=== PATIENT | female | born 1950 | race Caucasian/White ===

== ENCOUNTER 2019-05-26 21:18 | Emergency (ER) | payer OTHER ==
[~2019-05-26] VITALS: Ht 160 cm; Wt 50.4 kg
[~2019-05-26 21:18] MED LIST: BONIVA; CETI10; CETI10 PO; CHANTIX; CLOP75 PO; COLE1 PO; FAMO10; HYDHCL10 PO; HYDPAM25 PO; HYDROCODONE/APAP; IBUP800 PO; METH5; OMEP20ER PO; PRED5; PROACE100 PO; RANI150; TIZA4; TIZA4 PO; [UNRECOGNIZED DRUG - REMARK]; [UNRECOGNIZED DRUG - REMARK]
[2019-05-26 22:10] LABS: BASOPHILS ABSOLUTE AUTO 0.04 K/mm3 (0.00-0.23); BASOPHILS PERCENT AUTO 1 % (0-2); EOSINOPHILS ABSOLUTE AUTO 0.02 K/mm3 (0.00-0.68); EOSINOPHILS PERCENT AUTO 0 % (0-6); Hematocrit 41.9 % (33.0-51.0); Hemoglobin 13.9 g/dL (11.5-16.0); IMMATURE GRAN ABSOLUTE AUTO 0.01 K/mm3 (0.00-0.10); IMMATURE GRAN PERCENT AUTO 0 % (0-1); LYMPHOCYTES ABSOLUTE AUTO 2.99 K/mm3 (0.84-5.20); LYMPHOCYTES PERCENT AUTO 38 % (21-46); MONOCYTES ABSOLUTE AUTO 0.53 K/mm3 (0.16-1.47); MONOCYTES PERCENT AUTO 7 % (4-13); Mean Corpuscular HGB 32.2 pg (26.0-34.0); Mean Corpuscular HGB Conc 33.2 g/dL (31.5-36.5); Mean Corpuscular Volume 97 fL (80-100); Mean Platelet Volume 9.1 fL (9.1-12.4); NEUTROPHILS ABSOLUTE AUTO 4.21 K/mm3 (1.96-9.15); NEUTROPHILS PERCENT AUTO 54 % (41-73); Platelet Count 262 K/mm3 (150-400); RDW Coefficient Variation 12.9 % (11.7-14.2); RDW Standard Deviation 45.9 fL (35.1-46.3); Red Blood Cell Count 4.32 M/mm3 (3.80-5.20)
[2019-05-26 22:32] LABS: Alanine Aminotransfer (ALT/SGP 18 U/L (12-78); Albumin, Blood 3.1 g/dL (3.4-5.0); Albumin/Globulin Ratio 0.9 (0.8-1.8); Alk Phos 64 U/L (50-136); Anion Gap 9 mmol/L (6-16); Aspartate Aminotrans (AST/SGOT 20 U/L (12-37); Bilirubin, Total 0.2 mg/dL (0.1-1.0); Blood Urea Nitrogen 5 mg/dL (8-24); Bun/Creatinine Ratio 7.9 (12.0-20.0); CO2, Blood 27 mmol/L (21-32); Calcium, Blood 8.7 mg/dL (8.5-10.1); Chloride, Blood 103 mmol/L (98-108); Creatinine, Blood 0.63 mg/dL (0.40-1.00); Globulin, Blood 3.6 g/dL (2.2-4.0); Glomerular Filtration Rate >60 (60-); Glucose, Blood 125 mg/dL (70-99); Potassium, Blood 2.7 mmol/L (3.5-5.5); Sodium, Blood 139 mmol/L (136-145); Total Protein, Blood 6.7 g/dL (6.4-8.2)
[2019-05-26] MEDS ORDERED: CLOB.05TO (22:48)
[2019-05-26] MEDS ORDERED: CLOP75 PO (22:48)
[2019-05-26] MEDS ORDERED: Hydrochloroth12.5 MG PO (22:49)
[2019-05-26] MEDS ORDERED: ACET325 PO (22:49)
[2019-05-26] MEDS ORDERED: CALCIUM 600 +1 EA11 PO (22:50)
[2019-05-26] MEDS ORDERED: DOXY100 PO (22:50)
[2019-05-26 23:05] LABS: Source, Urine Clean Catch
[2019-05-26 23:08] LABS: Bilirubin, Urine Neg (Neg); Blood, Urine 1+ (Neg); Glucose Qualitative, Urine Neg (Neg); Ketones, Urine 1+ (Neg); Leukocyte Esterase, Urine 3+ (Neg); Nitrite, Urine Neg (Neg); Protein, Urine 2+ (Neg); Urobilinogen, Urine 1+ (Normal)
[2019-05-26 23:15] LABS: Color, Urine Yellow (P-Yellow)
[2019-05-26 23:16] LABS: Appearance, Urine Hazy (Clear)
[2019-05-26 23:18] LABS: Bacteria Many /hpf; Red Blood Cells, Urine 0-2 /hpf (0-2); Squamous Epithelial Cells Many /hpf (Few); White Blood Cells, Urine 50-100 /hpf (0-5)
[2019-05-27] MEDS ORDERED: LEVE500 PO (00:08)
[2019-05-27] MEDS ORDERED: CEPH500 PO (00:08)
== END 2019-05-27 00:55 | disposition home or self-care (01) ==
LOC: ER 21:18
PROVIDERS: Physician Assistant
DX: N39.0 Urinary tract infection, site not specified (principal); R42 Dizziness and giddiness; I10 Essential (primary) hypertension; Z91.040 Latex allergy status; Z88.2 Allergy status to sulfonamides; Z91.02 Food additives allergy status; Z91.018 Allergy to other foods; Z91.048 Other nonmedicinal substance allergy status; Z79.899 Other long term (current) drug therapy; Z79.01 Long term (current) use of anticoagulants; Z86.73 Personal history of transient ischemic attack (TIA), and cerebral infarction without residual deficits
CPT/HCPCS: 36415; 70450; 80053; 81001; 85025; 87086; 93005; 93010; 96365; 96367; 99284-25; J0696; J1953

== ENCOUNTER → 2021-01-04 | Outpatient (CLI) | payer OTHER ==
[~2021-01-04] MED LIST changes: +ACET325 PO; +CALCIUM 600 +1 EA11 PO; +CEPH500 PO; +CLOB.05TO; +DOXY100 PO; +Hydrochloroth12.5 MG PO; +LEVE500 PO
== END | disposition home or self-care (01) ==
LOC: LAB SHORT 07:41
DX: L98.8 Other specified disorders of the skin and subcutaneous tissue (principal)
CPT/HCPCS: 88305; 88312

== ENCOUNTER 2023-12-15 11:45 | Emergency (ER) | payer MEDICARE ==
[~2023-12-15] VITALS: Ht 149.9 cm; Wt 39.9 kg
[2023-12-15] MEDS ORDERED: Droperidol 5 mg/2 ml Vial IV ONE ×2 (13:20→14:05)
[2023-12-15] MEDS ORDERED: Amoxicillin500 MG PO (13:37)
[2023-12-15] MEDS ORDERED: IBUP100S PO (13:38)
[2023-12-15] MEDS ORDERED: Klor-Con M1515 MEQ PO (13:38)
[2023-12-15] MEDS ORDERED: KLONOPIN0.5 M9 PO (13:39)
[2023-12-15 13:45] LABS: pH Blood Venous 7.43 (7.34-7.37)
[2023-12-15 13:46] LABS: Base Excess Venous 10.3 mmol/L; PCO2 Venous 53 mmHg (38-42)
[2023-12-15 14:01] LABS: BASOPHILS ABSOLUTE AUTO 0.02 K/mm3 (0.00-0.23); BASOPHILS PERCENT AUTO 0 % (0-2); EOSINOPHILS ABSOLUTE AUTO 0.06 K/mm3 (0.00-0.68); EOSINOPHILS PERCENT AUTO 1 % (0-6); Hemoglobin 15.4 g/dL (11.5-16.0); IMMATURE GRAN ABSOLUTE AUTO 0.01 K/mm3 (0.00-0.10); IMMATURE GRAN PERCENT AUTO 0 % (0-1); LYMPHOCYTES PERCENT AUTO 32 % (21-46); MONOCYTES ABSOLUTE AUTO 0.54 K/mm3 (0.16-1.47); MONOCYTES PERCENT AUTO 8 % (4-13); Mean Corpuscular HGB 30.3 pg (26.0-34.0); Mean Corpuscular HGB Conc 33.5 g/dL (31.5-36.5); Mean Corpuscular Volume 91 fL (80-100); Mean Platelet Volume 9.9 fL (9.1-12.4); NEUTROPHILS ABSOLUTE AUTO 4.06 K/mm3 (1.96-9.15); NEUTROPHILS PERCENT AUTO 59 % (41-73); Platelet Count 217 K/mm3 (150-400); RDW Coefficient Variation 13.4 % (11.7-14.2); RDW Standard Deviation 45.1 fL (35.1-46.3); Red Blood Cell Count 5.08 M/mm3 (3.80-5.20); White Blood Cell Count 6.89 K/mm3 (4.00-11.30)
[2023-12-15 14:24] LABS: Albumin, Blood 3.4 g/dL (3.4-5.0); Albumin/Globulin Ratio 0.9 (0.8-1.8); Bilirubin, Total 0.7 mg/dL (0.1-1.0); Bun/Creatinine Ratio 6.6 (12.0-20.0); Calcium, Blood 9.3 mg/dL (8.5-10.1); Creatinine, Blood 0.91 mg/dL (0.40-1.00); Globulin, Blood 3.8 g/dL (2.2-4.0); Magnesium, Blood 1.7 mg/dL (1.6-2.4); Potassium, Blood 3.3 mmol/L (3.5-5.5); Total Protein, Blood 7.2 g/dL (6.4-8.2)
[2023-12-15] MEDS ORDERED: Potassium Chloride 20 MEQ TabCR PO ONE (14:50)
[2023-12-15] MEDS ORDERED: Seroquel Xr50 MG PO (15:12)
[2023-12-15 16:31] LABS: Source, Urine Straight Cath
[2023-12-15 16:34] LABS: Bilirubin, Urine Neg (Neg); Blood, Urine Neg (Neg); Color, Urine Yellow (P-Yellow); Glucose Qualitative, Urine Neg (Neg); Ketones, Urine Neg (Neg); Leukocyte Esterase, Urine 1+ (Neg); Nitrite, Urine Neg (Neg); Protein, Urine Neg (Neg); Urobilinogen, Urine NORM (Normal); pH, Urine 6.5 (5.0-8.0)
[2023-12-15 16:52] LABS: Appearance, Urine Hazy (Clear)
[2023-12-15 17:02] VITALS: BP 163/73
[2023-12-15 17:16] LABS: Bacteria Mod /hpf; Mucus Light (0-Heavy); Red Blood Cells, Urine 0-2 /hpf (0-2); Squamous Epithelial Cells Few /hpf (Few); Yeast/Fungi Urine Rare /hpf
== END 2023-12-15 17:19 | disposition home or self-care (01) ==
LOC: ER 11:45
PROVIDERS: Student in an Organized Health Care Education/Training Program
DX: A52.17 General paresis (principal); M79.7 Fibromyalgia; E87.6 Hypokalemia; I10 Essential (primary) hypertension; F17.200 Nicotine dependence, unspecified, uncomplicated; Z79.02 Long term (current) use of antithrombotics/antiplatelets; Z79.899 Other long term (current) drug therapy; Z91.040 Latex allergy status; Z88.2 Allergy status to sulfonamides; Z91.018 Allergy to other foods; Z91.048 Other nonmedicinal substance allergy status
CPT/HCPCS: 80053; 81001; 82140; 82803; 83735; 85025; 96374; 99285-25; A9270; J1790; P9612

== ENCOUNTER 2023-12-20 08:15 | Emergency (ER) | payer MEDICARE ==
[~2023-12-20] VITALS: Ht 152.4 cm; Wt 39.5 kg
[~2023-12-20 08:15] MED LIST changes: +Amoxicillin500 MG PO; +IBUP100S PO; +KLONOPIN0.5 M9 PO; +Klor-Con M1515 MEQ PO; +Seroquel Xr50 MG PO
[2023-12-20] MEDS ORDERED: DONEPEZIL HCL10 M1 PO (08:32)
[2023-12-20 09:45] VITALS: BP 166/91
== END 2023-12-20 10:40 | disposition home or self-care (01) ==
LOC: ER 08:15
DX: M25.551 Pain in right hip (principal); F17.200 Nicotine dependence, unspecified, uncomplicated; I10 Essential (primary) hypertension; W13.3XXA Fall through floor, initial encounter; Z86.73 Personal history of transient ischemic attack (TIA), and cerebral infarction without residual deficits; Z79.899 Other long term (current) drug therapy; Z91.040 Latex allergy status; Z88.2 Allergy status to sulfonamides; Z91.011 Allergy to milk products; Z91.018 Allergy to other foods; Z91.09 Other allergy status, other than to drugs and biological substances
CPT/HCPCS: 73502; 99283-25

== ENCOUNTER 2024-01-04 09:18 | Inpatient (IN) | payer MEDICARE ==
[2024-01-04] VITALS (9 sets, daily range): BP systolic 108–180; BP diastolic 78–99
[~2024-01-04] VITALS: Ht 149.9 cm; Wt 36.7 kg
[~2024-01-04 09:18] MED LIST changes: +DONEPEZIL HCL10 M1 PO
[2024-01-04 10:24] LABS: Source, Urine Straight Cath
[2024-01-04 10:28] LABS: Appearance, Urine Clear (Clear); Bilirubin, Urine Neg (Neg); Blood, Urine Neg (Neg); Color, Urine Yellow (P-Yellow); Glucose Qualitative, Urine Neg (Neg); Ketones, Urine Neg (Neg); Leukocyte Esterase, Urine Neg (Neg); Nitrite, Urine Neg (Neg); Protein, Urine Neg (Neg); Urobilinogen, Urine 1+ (Normal)
[2024-01-04 10:56] LABS: BASOPHILS ABSOLUTE AUTO 0.03 K/mm3 (0.00-0.23); BASOPHILS PERCENT AUTO 0 % (0-2); EOSINOPHILS ABSOLUTE AUTO 0.08 K/mm3 (0.00-0.68); EOSINOPHILS PERCENT AUTO 1 % (0-6); Hematocrit 48.2 % (33.0-51.0); Hemoglobin 15.9 g/dL (11.5-16.0); IMMATURE GRAN ABSOLUTE AUTO 0.02 K/mm3 (0.00-0.10); IMMATURE GRAN PERCENT AUTO 0 % (0-1); LYMPHOCYTES ABSOLUTE AUTO 2.29 K/mm3 (0.84-5.20); LYMPHOCYTES PERCENT AUTO 29 % (21-46); MONOCYTES ABSOLUTE AUTO 0.41 K/mm3 (0.16-1.47); MONOCYTES PERCENT AUTO 5 % (4-13); Mean Corpuscular HGB 29.9 pg (26.0-34.0); Mean Corpuscular Volume 91 fL (80-100); Mean Platelet Volume 9.8 fL (9.1-12.4); NEUTROPHILS ABSOLUTE AUTO 5.19 K/mm3 (1.96-9.15); NEUTROPHILS PERCENT AUTO 65 % (41-73); Platelet Count 240 K/mm3 (150-400); RDW Coefficient Variation 13.3 % (11.7-14.2); RDW Standard Deviation 45.1 fL (35.1-46.3); Red Blood Cell Count 5.31 M/mm3 (3.80-5.20); White Blood Cell Count 8.02 K/mm3 (4.00-11.30)
[2024-01-04 11:20] LABS: Albumin, Blood 3.1 g/dL (3.4-5.0); Albumin/Globulin Ratio 0.9 (0.8-1.8); Bilirubin, Total 0.8 mg/dL (0.1-1.0); Bun/Creatinine Ratio 12.8 (12.0-20.0); Calcium, Blood 8.8 mg/dL (8.5-10.1); Creatinine, Blood 0.63 mg/dL (0.40-1.00); Globulin, Blood 3.5 g/dL (2.2-4.0); Total Protein, Blood 6.6 g/dL (6.4-8.2)
[2024-01-04] MEDS ORDERED: TraMADol HCl 50 MG Tab PO PRN (11:50)
[2024-01-04] MEDS ORDERED: FentaNYL Citrate 50 MCG/ML 2 ML Injection IV PRN (11:55)
[2024-01-04] MEDS ORDERED: Acetaminophen 325 MG TABLET PO PRN (11:55)
[2024-01-04] MEDS ORDERED: ClonazePAM 0.5 MG Tab PO PRN (12:45)
[2024-01-04] MEDS ORDERED: Ketorolac Tromethamine 15mg Vial IV PRN (12:55)
[2024-01-04] MEDS ORDERED: CeFAZolin Sodium 2,000 MG in NS 100 ML IV SCH (15:15)
[2024-01-04] MEDS ORDERED: Lactated Ringer's 1,000 ML IV SCH (15:15)
[2024-01-04] MEDS ORDERED: Bupivacaine 0.5% Inj 10 ML Vial ONE (15:24)
[2024-01-04] MEDS ORDERED: FentaNYL Citrate 50 MCG/ML 2 ML Injection ONE (15:43)
[2024-01-04] MEDS ORDERED: propofoL 20 ML IV ONE (15:43)
[2024-01-04] MEDS ORDERED: Lidocaine HCl 2% 20 ML MDV ONE (15:44)
--- NOTE | 2024-01-04 15:48 | NUR ---
DAY SURGERY PT ARRIVING TO DAY SURGERY IN ER [facility]. PT IS AXO TO SELF ONLY WHICH IS UNCHANGED FROM ER PER [employer]. PT COMUNICATING W STAFF BUT DOES NOT FOLLOW COMMANDS . PT REPORTING PAIN IN HER R HIP AND HER LEFT LOWER LEG. PT HYPERTENSIVE W SBP IN THE 180'S. SPO2 >94% ON RM AIR. PT AFEBRILE. RESP ARE EVEN AND UNLABORED. DR. DARBY AT BEDSIDE. PT REPORTING PAIN BUT IS NOT IN DISTRESS. PT'S DAUGHTER CONTACTED BY DR. DARBY AND IS ON HER WAY TO DAY SURGERY.
[2024-01-04] MEDS ORDERED: Tranexamic Acid 100 ML IV SCH (16:20)
[2024-01-04] MEDS ORDERED: Phenylephrine HCl 100 MCG/ML-NS 10MLSYR (1MG/10ML) ONE (16:29)
[2024-01-04] MEDS ORDERED: Dexamethasone Sod Phos 10 MG/ML 1ML VIAL ONE (16:35)
[2024-01-04] MEDS ORDERED: EpiNEPhrine 1 MG/1 ML 1ML Vial ONE (16:42)
[2024-01-04] MEDS ORDERED: Ondansetron HCl 2 MG / ML 2ML Vial ONE (17:17)
--- NOTE | 2024-01-04 18:30 | NUR ---
ARRIVAL TO 213 PT ARRIVED TO HER ROOM FROM PACU, TRANSFERRED TO HER BED WITH 5 STAFF, VANESSA PROMINENCE NOTED ON SACRUM WHICH WAS PADDED, PUREWICK PLACED, PT NOT HOLDING STILL TO DO VITALS AT THIS TIME, ATTEMPTED TO ORIENT BUT NOT ABLE TO.
[2024-01-04] MEDS ORDERED: LORazepam 2 MG/ML 1ML Injection IV ONE ×2 (19:15)
[2024-01-04] MEDS ORDERED: QUEtiapine Fumarate 25 MG Tab PO SCH (21:00)
[2024-01-05] MEDS ORDERED: LORazepam 2 MG/ML 1ML Injection ONE (01:24)
[2024-01-05 04:13] VITALS: BP 137/91
[2024-01-05 07:41] VITALS: BP 127/62
[2024-01-05 07:50] LABS: BASOPHILS ABSOLUTE AUTO 0.01 K/mm3 (0.00-0.23); BASOPHILS PERCENT AUTO 0 % (0-2); EOSINOPHILS PERCENT AUTO 0 % (0-6); Hematocrit 43.3 % (33.0-51.0); Hemoglobin 14.5 g/dL (11.5-16.0); IMMATURE GRAN ABSOLUTE AUTO 0.02 K/mm3 (0.00-0.10); IMMATURE GRAN PERCENT AUTO 0 % (0-1); LYMPHOCYTES ABSOLUTE AUTO 1.13 K/mm3 (0.84-5.20); LYMPHOCYTES PERCENT AUTO 13 % (21-46); MONOCYTES ABSOLUTE AUTO 0.57 K/mm3 (0.16-1.47); MONOCYTES PERCENT AUTO 6 % (4-13); Mean Corpuscular HGB 30.1 pg (26.0-34.0); Mean Corpuscular HGB Conc 33.5 g/dL (31.5-36.5); Mean Corpuscular Volume 90 fL (80-100); Mean Platelet Volume 9.5 fL (9.1-12.4); NEUTROPHILS ABSOLUTE AUTO 7.24 K/mm3 (1.96-9.15); NEUTROPHILS PERCENT AUTO 81 % (41-73); Platelet Count 212 K/mm3 (150-400); RDW Standard Deviation 42.9 fL (35.1-46.3); Red Blood Cell Count 4.81 M/mm3 (3.80-5.20); White Blood Cell Count 8.97 K/mm3 (4.00-11.30)
[2024-01-05 08:08] LABS: Bun/Creatinine Ratio 13.1 (12.0-20.0); Calcium, Blood 8.6 mg/dL (8.5-10.1); Creatinine, Blood 0.69 mg/dL (0.40-1.00); Potassium, Blood 4.1 mmol/L (3.5-5.5)
[2024-01-05] MEDS ORDERED: Donepezil HCl 5 MG Tab PO SCH (09:00)
[2024-01-05] MEDS ORDERED: Potassium Chloride 10 Meq Tablet SA PO SCH (09:00)
[2024-01-05] MEDS ORDERED: Nicotine 14 MG PATCH TOP SCH (09:00)
[2024-01-05] MEDS ORDERED: Calcium/Vit D 600 mg-400 Unit Tab PO SCH (09:00)
[2024-01-05 14:31] VITALS: BP 165/80
--- NOTE | 2024-01-05 20:00 | NUR ---
PT HAS BEEN STABLE THIS SHIFT. CONFUSED AND COMBATIVE. ORIENTED X0. PT PULLS AT LINES AND DRESSINGS. SITTER PRESENT. PT AQUACEL CHANGED X2 PRN FOR PT PULLING. SMALL AMT SANG DRAINAGE PRESENT. PT NOT ABLE TO WORK WITH THERAPY SHE DOES NOT FOLLOW COMMANDS. PT MOVING IN BED CONSTANTLY. IV SL. POOR PO INTAKE. INCONTINENT IN ATTENDS. PREVENTATIVE MEPILEX TO COCCYX. PLAN FOR PLACEMENT IN [facility] AT DISCHARGE.
[2024-01-05 20:23] VITALS: BP 161/85
--- NOTE | 2024-01-06 04:37 | NUR ---
SHIFT SUMMARY PT IS POD2 FOR A R HIP NAILING. DRESSINGS REMAIN C/D/I. PT HAS SLEPT MOST OF SHIFT, AWAKE THE LAST COUPLE OF HOURS AND VERBALLY RESPONSIVE, BUT IS VERY CONFUSED AND DOES NOT RESPOND TO QUESTIONS APPROPRIATELY. PT HAS BEEN COOPERATIVE W/ CARE THIS SHIFT. INC VOIDS, ATTENDS IN PLACE. VSS. PT IS SALINE LOCKED. PT DID NOT COMPLAIN OF PAIN THIS SHIFT. CALL LIGHT IN REACH, BED ALARM ON, CLINICAL SITTER IN ROOM W/ PT.
[2024-01-06 04:54] VITALS: BP 151/80
[2024-01-06] MEDS ORDERED: Enoxaparin 40 MG/0.4 ML SYR SC SCH (09:00)
[2024-01-06 09:30] VITALS: BP 137/96
--- NOTE | 2024-01-06 14:57 | NUR ---
DR. MORRISON NOTIFIED THAT THIS RN WAS UNABLE TO LOCATE PT'S R PEDAL PULSE BY PALPATING OR BY DOPPLER. R AND L TIBIAL AND R PEDAL PULSE LOCATED BY DOPPLER BUT UNABLE TO PALPATE. PT ALSO HAS DISCOLORATION TO HER L 2ND TOE. PT IS ALSO AGGITATED AND CONTINUALLY TRYING TO GET OOB. 1:1 SITTER AT THE BEDSIDE FOR PT SAFETY. SPOKE WITH PT'S DAUGHTER REGARDING CONFUSION/AGGITATION/ANXIETY. CLONAZEPAM GIVEN EARLIER WITH NO EFFECT. ATIVAN ORDERED PER DR. MORRISON.
[2024-01-06] MEDS ORDERED: LORazepam 2 MG/ML 1ML Injection IV ONE (15:05)
--- NOTE | 2024-01-06 16:08 | NUR ---
Review of atient with nursing. Pt aggitated and trying to climb out of bed. NUrse relays poor pules to lower extremities. Pt not wanting to eat. Pt frail and very thin and aggitated. Review of labas and chart and assessment of pt kps score is 40% Will revew pt with pillowcase turner tomorrow and speak with daughter. Pt would benefit from hospice care to reduce suffering and keep her safe and protected. Nursing relayed daughter trying to get her placed noted that friends are coming to house and daughter has some concerns.
[2024-01-06 19:22] VITALS: BP 148/89
--- NOTE | 2024-01-06 19:46 | NUR ---
SHIFT SUMMARY PT IS POD#2. PAIN MANAGED WITH TYLENOL AND TORADOL. PT HAS BEEN CONFUSED T/O THE DAY. SHE REQUIRED A 1:1 SITTER AT THE BEDSIDE. SPOKE WITH PT'S DAUGHTER TAZ TODAY. PALLIATIVE CARE CONSULT PLACED. BEDSIDE REPORT GIVEN TO ZAHEER SCOTT.
--- NOTE | 2024-01-07 04:08 | NUR ---
PT IS POD3 FOR R HIP. DRESSINGS REMAIN C/D/I. VSS, PT TACHYCARDIC WHEN AGITATED BUT HR IS CURRENTLY IN THE 80'S AT REST. PT ABLE TO REST MOST OF THE NIGHT. INC VOIDS, CLEAN/DRY ATTENDS IN PLACE. PT IS ONLY ORIENTED TO SELF, ABLE TO RESPOND TO YES/NO QUESTIONS. NOT USING CALL LIGHT. BED ALARM IN PLACE.
[2024-01-07 04:16] VITALS: BP 117/79
[2024-01-07 06:17] VITALS: BP 150/75
[2024-01-07 16:54] VITALS: BP 155/94
[2024-01-07 19:23] VITALS: BP 139/89
--- NOTE | 2024-01-07 19:29 | NUR ---
SHIFT SUMMARY PT IS POD#3 FROM R HIP REPAIR. PAIN MANAGED WITH TYLENOL AND TORADOL. PT IS ALERT AND ORIENTED TO SELF. PT'S DAUGHTER VISITED TODAY, PT RESPONDED WELL TO HER DAUGHTER. PT SEEN BY PALLIATIVE CARE. PT HAS HAD LOW INTAKE THIS SHIFT, FOOD AND FLUIDS HAVE BEEN ENCOURAGED. REPORT GIVEN TO VENITA SCOTT.
--- NOTE | 2024-01-07 21:00 | NUR ---
TRANSFERRED PT FROM SURG FLOOR TO 364 WITH SITTER IN ATTENDANCE.PT TALKATIVE WITHHX DEMENTIA, BUT COOPERATIVE ON ARRIVAL TO .
[2024-01-08 07:49] VITALS: BP 139/86
--- NOTE | 2024-01-08 08:19 | NUR ---
SUMMARY PT BECOMING AGGITATED THIS AM,DRAWS LEGS UP IN BED,STATES HURTS,BUT WHEN ASKED,DENIES PAIN AND REFUSES PAIN MEDS.FREQUENT CONFUSED STATEMENTS.PICKING AT LINEN AND DRESSINGS INTERMITTENTLY.REFUSES ANY PO MEDS THIS AM.SITTER AT BEDSIDE FOR DAY SHIFT.
[2024-01-08] MEDS ORDERED: QUEtiapine Fumarate 25 MG Tab PO PRN (11:05)
--- NOTE | 2024-01-08 11:53 | NUR ---
ASSUMING CARE OF PT FROM LAI Liang RN.
--- NOTE | 2024-01-08 14:40 | NUR ---
[facility]
[2024-01-08 21:31] VITALS: BP 96/73
--- NOTE | 2024-01-09 06:04 | NUR ---
SHIFT SUMMARY PT A&O TO SELF, CONFUSED W/ SIUATION, TIME, AND SOMETIMES PLACE. PT HAS 1V1 SITTER AT BEDSIDE. HS MEDICATIONS ADMINISTERED. VSS, NO COMPLAINTS OF CP/PRESSURE OR SOB. PT SPENT MOST OF SHIFT IN BED WITH EYES CLOSED AND RESPIRATIONS EVEN AND UNLABORED. PT REPOSITIONED Q2HRS. N0 ACUTE EVENTS AT THIS TIME. PT LEFT IN A POSITION OF SAFETY WITH FALL PRECAUTIONS IN PLACE AND CALL LIGHT IN REACH.
[2024-01-09 08:45] VITALS: BP 174/94
[2024-01-09 15:58] VITALS: BP 146/72
--- NOTE | 2024-01-09 17:47 | NUR ---
PATIENT A/O TO SELF ONLY. AGITATED AT TIMES TODAY AND CUSSING AT STAFF AND REFUSING CARE. VERY LITTLE PO INTAKE AND REFUSED TO TAKE PILLS AT TIMES. REPORTS SEVERE RIGHT LEG/HIP PAIN, TYLENOL AND TRAMADOL GIVEN TO TREAT. SEROQUEL GIVEN THIS AFTERNOON WHICH HELPED PATIENT REST. LITTLE TO NO URINE OUTPUT THIS SHIFT, DR MORRISON NOTIFIED. WILL ENCOURAGE PO FLUIDS. PLAN IS TO DC WITH HOSPICE CARE.
[2024-01-09 20:19] VITALS: BP 127/66
--- NOTE | 2024-01-09 23:47 | NUR ---
patient has continued to be verbally aggressive, cursing at me , having hallucinations, I passed on to Rn on duty about all this. Patient continues to try and remove bandages off right hip. will continue to monitor.
--- NOTE | 2024-01-10 06:07 | NUR ---
SHIFT SUMMARY PT A&O TO SELF AND IS CONFUSED. UNABLE TO FOLLOW DIRECTIONS. PT RECEIVED SEROQUEL SCHEDULED AND PRN THROUGH THE NIGHT. PT VERBALIZED PAIN AND RECEIVED TYLENOL. PT REFUSED THE PAIN MEDICATIONS DURING ADMINISTRATION, PT REFUSAL DOCUMENTED. VSS, NO COMPLAINTS OF CP/PRESSURE OR SOB. PT SPENT MOST OF SHIFT IN BED WITH EYES CLOSED AND RESPIRATIONS EVEN AND UNLABORED. PT REPOSITIONED Q2 HOURS. 1ON1 SITTER IN ROOM. NO ACUTE EVENTS AT THIS TIME. PT LEFT IN A POSITION OF SAFETY WITH FALL PRECAUTIONS IN PLACE AND CALL LIGHT IN REACH.
[2024-01-10] MEDS ORDERED: HYDROcodone 5-APAP 325 TAB PO PRN (11:40)
[2024-01-10] MEDS ORDERED: OxyCODONE HCl Soln 20 MG/ML 1 ML Oral SYR PO PRN (12:40)
[2024-01-10 16:53] VITALS: BP 115/91
--- NOTE | 2024-01-10 17:15 | NUR ---
PATIENT AWAKE MOST OF THE SHIFT. A/O TO SELF ONLY. IRRITABLE AND ANGRY AT TIMES ABOUT NOT BEING AT HOME. PAIN BETTER CONTROLLED WITH LIQUID OXYCODONE. PATIENT HAS DIFFICULTY SWALLOWING LARGE PILLS. ATTEMPTED TO GET PATIENT UP TO BSC TODAY, BUT SHE WAS VERY WEAK AND UNABLE TO HOLD HERSELF UP. KAMINSKI PLACED TO GRAVITY FOR COMFORT. SEROQUEL GIVEN X1 TODAY. PLAN IS TO DC TO [facility] TOMORROW.
[2024-01-11 03:56] VITALS: BP 136/83
--- NOTE | 2024-01-11 06:32 | NUR ---
SHIFT SUMMARY: Pt admitted for right hip FX with pinning and is a DNR. is alert and able to make some needs known. ADLs have been 1p but did not get out of bed during shift. No pain noted or reported by 1:[address] and draining clear roxann urine.
[2024-01-11 07:01] VITALS: BP 143/124
--- NOTE | 2024-01-11 08:30 | NUR ---
pt laying curled up in bed, sitter at bedside, oriented to self only, but is pleasant this am, lungs are dim t/o, resp even and unlabored, no cough noted, on r/a, hrr, btx4 garcia cath present, dressing to r hip, site is c/d/i, skin other rtavis intact, is bedrest with turns, will be leaving today on hospice, call light in reach, sitter at bedside.
--- NOTE | 2024-01-11 09:28 | NUR ---
POLST FORM REVIEWED WITH PT'S DAUGHTER, LYLA VIA PHONE. EXPLAINED CPR VS DNR. DTR STS PT WOULD WANT DNR, WHICH SHE DNR IS WHILE IN THE HOSPITAL. ADDITIONALLY REVIEWED EACH LEVEL OF MEDICAL INTERVENTIONS IN DETAIL, COMFORT, LIMITED AND FULL TREATMENT. DTR REQUESTS COMFORT MEASURES PT IS D/C TO [facility] ([facility]) WITH HOSPICE TODAY. 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 OBTAINED PROVIDER SIGNATURE ON FORM. THIS PC RN WILL DISTIBUTE POLST PER PROTOCOL (REGISTRY, MEDICAL RECORDS, CARE MANAGEMENT, AND POA). PC TO REMAIN AVAILABLE NEEDED.
[2024-01-11] MEDS ORDERED: ENOX40I SC (10:38)
[2024-01-11] MEDS ORDERED: Nicoderm Cq1 EAC1 TOP (10:38)
[2024-01-11] MEDS ORDERED: MORP20L PO (10:40)
--- NOTE | 2024-01-11 10:53 | NUR ---
pt left via gurney with transport to hospice care. she is clean and dry, gave tylenol prior to leaving. transport has all necessary paperwork.
== END 2024-01-11 10:55 | disposition hospice, inpatient (51) | DRG 956 ==
LOC: ER 09:18 → SURS 11:49 → MEDS 01-07 21:00
PROVIDERS: Emergency Medicine; Orthopaedic Surgery Sports Medicine; ADMIT Family Medicine
PROC: 0QS636Z Reposition Right Upper Femur with Intramedullary Internal Fixation Device, Percutaneous Approach (ICD-10-PCS; principal; 2024-01-04 16:00)
PROC: 0T9B70Z Drainage of Bladder with Drainage Device, Via Natural or Artificial Opening (ICD-10-PCS; 2024-01-05)
DX: S72.144A Nondisplaced intertrochanteric fracture of right femur, initial encounter for closed fracture (principal); S32.19XA Other fracture of sacrum, initial encounter for closed fracture; F03.918 Unspecified dementia, unspecified severity, with other behavioral disturbance; S32.048A Other fracture of fourth lumbar vertebra, initial encounter for closed fracture; Z66 Do not resuscitate; R33.9 Retention of urine, unspecified; Z51.5 Encounter for palliative care; M79.7 Fibromyalgia; F17.210 Nicotine dependence, cigarettes, uncomplicated; I10 Essential (primary) hypertension; Z86.73 Personal history of transient ischemic attack (TIA), and cerebral infarction without residual deficits; Z90.710 Acquired absence of both cervix and uterus; Z79.899 Other long term (current) drug therapy; W18.39XA Other fall on same level, initial encounter
CPT/HCPCS: 36415; 51701; 70450; 72192; 73502; 73552; 80048; 80053; 81003; 85025; 99285-25; A9270; C1713; C1769; J0171; J0690; J1100; J1650; J1885; J2060; J2371; J2405; J2704; J3010; J7120; P9612